=== PATIENT | female | born 1985 | race Caucasian/White ===

== ENCOUNTER 2016-10-13 01:09 | Inpatient (IN) | payer OTHER ==
[2016-10-13] VITALS (11 sets, daily range): BP systolic 94–120; BP diastolic 54–82; PULSE 66–94; RESP 16–20; TEMP 97.9–99.1; O2SAT 93–100
[~2016-10-13] VITALS: Ht 162.6 cm; Wt 59.6 kg
[2016-10-13] MEDS ORDERED: SODIUM CHLORID 0.9% 500 ML INJ 500 ML IV ONE (04:00)
[2016-10-13] MEDS ORDERED: CLINDAMYCIN INJ 600 MG in SODIUM CHLORIDE 0.9% INJ 100 ML IV ONE (04:00)
[2016-10-13 04:17] LABS: BASOPHIL % 0.4 % (0.0-2.0); EOSINOPHIL # 0.1 TH/MM3 (0-0.4); EOSINOPHIL % 2.1 % (0.0-4.0); HEMATOCRIT 35.1 % (35.0-46.0); HEMO FLAGS DIFF FINAL; LYMPHOCYTE # 2.3 TH/MM3 (1.0-4.8); MEAN CELL VOLUME 77.2 FL (80.0-100.0); MEAN CORPUSCULAR HEMOGLOBIN 25.7 PG (27.0-34.0); MEAN CORPUSCULAR HGB CONC 33.3 % (32.0-36.0); MONO % 9.8 % (0.0-8.0); NEUT % 49.7 % (16.0-70.0); PLATELET COUNT 331 TH/MM3 (150-450); RED BLOOD COUNT 4.54 MIL/MM3 (4.00-5.30); RED CELL DISTRIBUTION WIDTH 15.4 % (11.6-17.2); WHITE BLOOD COUNT 6.1 TH/MM3 (4.0-11.0)
[2016-10-13 04:40] LABS: ALT (GPT) 53 U/L (10-53); ANION GAP 7 MEQ/L (5-15); AST (GOT) 49 U/L (15-37); BICARBONATE 31.4 MEQ/L (21.0-32.0); BLOOD UREA NITROGEN 13 MG/DL (7-18); CHLORIDE 102 MEQ/L (98-107); GLOMERULAR FILTRATION RATE 72 ML/MIN (>89); POTASSIUM 3.9 MEQ/L (3.5-5.1); SODIUM (NA) 140 MEQ/L (136-145)
[2016-10-13 04:42] LABS: ALKALINE PHOSPHATASE 91 U/L (45-117); TOTAL BILIRUBIN ADULT 0.4 MG/DL (0.2-1.0)
[2016-10-13] MEDS ORDERED: VANCOMYCIN INJ 1,000 MG in SODIUM CHLOR 0.9% 250 ML INJ 250 ML IV ONE (04:45)
[2016-10-13] MEDS ORDERED: PIPERACIL-TAZO 3.375 GM PREMIX 50 ML IV ONE (04:45)
--- NOTE | 2016-10-13 05:20 | PD ---
HPI Chief Complaint: Skin Problem Time Seen by Provider: 03:50 Travel History International Travel<30 days: No Contact w/Intl Traveler<30days: No Traveled to known affect area: No History of Present Illness HPI The patient is a 31 year old female who presents to the [facility] emergency department with a history of being brought in by the [facility] for medical clearance related to being an ex parte brought into their facility this evening. The patient has a history of long-standing hydromorphone IV drug use. She reports that she's been using for the last 3 years. The patient reports that she has intermittent abscesses from skin infections from IV drug use. She was last admitted to the hospital 6 months ago in [place] related to an infected wound. She reports that she saw a wound care management doctor at that time in the hospital, however she has not followed up with a primary care physician or a wound management doctor. The patient reports that for the last 2 months she's had a wound with poor healing along the posterior aspect of the right arm. This is 9 x 6 cm with necrotic tissue noted in the center and yellow discharge. The patient denies having any known fevers. The patient incidentally also reports on review of systems having chronic constipation. She reports that she has not moved her bowels for the last 2 weeks. The patient denies having any known history of HIV, however she has been diagnosed with hepatitis C. She is unsure whether she's had any prior history of heart infections related to her IV drug use. The patient denies any history of fever, cough, congestion, neck pain, chest pain, shortness of breath, abdominal pain, vomiting, diarrhea, urinary symptoms, or neurologic symptoms. [facility] Past Medical History Narrative Medical The patient's past medical history is significant for hepatitis C, IV drug use, history of recurrent skin infections. Tetanus Vaccination: Unknown ?: Not Past Surgical History Narrative Surgical The Patient's past surgical history is significant for 3 prior C-sections Social History Alcohol Use: No Tobacco Use: Yes (one pack per day) Substance Use: Yes (Heroin, Dilaudid, occasional cocaine, Marijuana) Allergies-Medications (Allergen,Severity, Reaction): Coded Allergies: No Known Allergies (Unverified , 03/06/14) Reported Meds & Prescriptions Reported Meds & Active Scripts Active No Active Prescriptions or Reported Medications Review of Systems Except as stated in HPI: all other systems reviewed are Neg General / Constitutional: No: Fever Eyes: No: Visual changes HENT: No: Headaches Cardiovascular: No: Chest Pain or Discomfort Respiratory: No: Shortness of Breath Gastrointestinal: Positive: Constipation, No: Nausea, Vomiting, Diarrhea, Abdominal Pain Genitourinary: No: Dysuria Musculoskeletal: No: Pain Skin: Positive Rash, Positive Lesions Neurologic: No: Weakness, Change in Mentation, Slurred Speech Psychiatric: Positive: Substance Abuse, No: Depression Endocrine: No: Polydipsia Hematologic/Lymphatic: No: Easy Bruising Physical Exam Narrative General: The patient is a well-developed thin appearing female in no acute distress. Head and Neck exam: Head is normocephalic atraumatic. Eyes: EOMI, pupils are equal round and reactive to light. Nose: Midline septum with pink mucous membranes Mouth: The patient has poor dentition throughout her mouth. Moist mucus membranes. Posterior oropharynx is not erythematous. No tonsillar hypertrophy. Uvula midline. Airway patent. Neck: No palpable lymphadenopathy. No nuchal rigidity. No thyromegaly. Cardiovascular: Regular rate and rhythm without murmurs, gallops, or rubs. Lungs: Clear to auscultation bilaterally. No wheezes, rhonchi, or rales. Abdomen: Soft, with palpable stool present throughout her colon, no focal tenderness on palpation. No guarding, rebound, or rigidity. Negative Melrude sign. No tenderness on palpation of McBurney's point. Extremities: No clubbing, cyanosis, or edema. 2+ pulses in all 4 extremities. The patient on examination of the area of interest, the right upper extremity along the posterior aspect just distal to the elbow is noted to have a 9 x 6 cm wound with yellow drainage and areas of necrosis. There is a surrounding rim of erythema. Back: No spinous process tenderness to palpation. No costovertebral angle tenderness to palpation. Neurologic Exam: Grossly nonfocal. Skin Exam: The patient has track otero on her upper extremities. The patient has multiple skin lesions noted and pick otero on bilateral upper extremities. The wound of interest that appears to be grossly infected is discussed under the extremity exam. Data Data Last Documented VS Vital Signs Date Time Temp Pulse Resp B/P Pulse Ox O2 Delivery O2 Flow Rate FiO2 10/13/16 05:08 70 16 106/77 100 Room Air 10/13/16 03:36 98.7 Orders Complete Blood Count With Diff (10/13/16 03:52) Comprehensive Metabolic Panel (10/13/16 03:52) C-Reactive Protein (Crp) (10/13/16 03:52) Urinalysis - C+S If Indicated (10/13/16 03:52) Iv Access Insert/Monitor (10/13/16 03:52) Ecg Monitoring (10/13/16 03:52) Oximetry (10/13/16 03:52) Ed Urine Pregnancytest Poc (10/13/16 03:52) Clindamycin Inj (Cleocin Inj) (10/13/16 04:00) Sodium Chlorid 0.9% 500 Ml Inj (Ns 500 M (10/13/16 04:00) Blood Culture (10/13/16 04:36) Wound Culture And Gram Stain (10/13/16 04:36) Lactic Acid Sepsis Protocol (10/13/16 04:36) Piperacil-Tazo 3.375 Gm Premix (Zosyn 3. (10/13/16 04:45) Vancomycin Inj (Vancomycin Inj) (10/13/16 04:45) Admit To Inpatient (10/13/16 ) Vital Signs (Adult) Q4H (10/13/16 05:25) Activity Oob Ad Zaynab (10/13/16 05:25) E Learning Specialist / Telemetry .CONTINUOUS (10/13/16 05:25) Diet Heart Healthy (10/13/16 Breakfast) Sodium Chlor 0.9% 1000 Ml Inj (Ns 1000 M (10/13/16 05:25) Sodium Chloride 0.9% Flush (Ns Flush) (10/13/16 05:30) Sodium Chloride 0.9% Flush (Ns Flush) (10/13/16 09:00) Basic Metabolic Panel (Bmp) (10/14/16 06:00) Complete Blood Count With Diff (10/14/16 06:00) Case Management Consult (10/13/16 05:25) Naloxone Inj (Narcan Inj) (10/13/16 05:30) Inpatient Certification (10/13/16 ) Consult General Surgery (10/13/16 ) Vancomycin Consult Pharmacy (Vancomycin (10/13/16 05:30) Piperacil-Tazo 4.5 Gm Premix (Zosyn 4.5 (10/13/16 11:00) Chest, Single Ap (10/13/16 05:30) Abdomen, Kub Only (10/13/16 05:30) Admit Order (Ed Use Only) (10/13/16 05:31) Labs Laboratory Tests Test 10/13/16 10/13/16 04:00 04:45 White Blood Count 6.1 TH/MM3 Red Blood Count 4.54 MIL/MM3 Hemoglobin 11.7 GM/DL Hematocrit 35.1 % Mean Corpuscular Volume 77.2 FL Mean Corpuscular Hemoglobin 25.7 PG Mean Corpuscular Hemoglobin 33.3 % Concent Red Cell Distribution Width 15.4 % Platelet Count 331 TH/MM3 Mean Platelet Volume 7.8 FL Neutrophils (%) (Auto) 49.7 % Lymphocytes (%) (Auto) 38.0 % Monocytes (%) (Auto) 9.8 % Eosinophils (%) (Auto) 2.1 % Basophils (%) (Auto) 0.4 % Neutrophils # (Auto) 3.0 TH/MM3 Lymphocytes # (Auto) 2.3 TH/MM3 Monocytes # (Auto) 0.6 TH/MM3 Eosinophils # (Auto) 0.1 TH/MM3 Basophils # (Auto) 0.0 TH/MM3 CBC Comment DIFF FINAL Differential Comment Sodium Level 140 MEQ/L Potassium Level 3.9 MEQ/L Chloride Level 102 MEQ/L Carbon Dioxide Level 31.4 MEQ/L Anion Gap 7 MEQ/L Blood Urea Nitrogen 13 MG/DL Creatinine 0.92 MG/DL Estimat Glomerular Filtration 72 ML/MIN Rate Random Glucose 84 MG/DL Calcium Level 9.4 MG/DL Total Bilirubin 0.4 MG/DL Aspartate Amino Transf 49 U/L (AST/SGOT) Alanine Aminotransferase 53 U/L (ALT/SGPT) Alkaline Phosphatase 91 U/L C-Reactive Protein 0.95 MG/DL Total Protein 8.5 GM/DL Albumin 3.7 GM/DL Lactic Acid Level 0.7 mmol/L MDM Medical Decision Making Medical Screen Exam Complete: Yes Emergency Medical Condition: Yes Medical Record Reviewed: Yes Interpretation(s) Last Impressions Chest X-Ray 10/13/16 0530 Signed Impressions: Service Date/Time: Thursday, October 13, 2016 05:52 - CONCLUSION: Normal examination. Santiago Solis Jr., MD Abdomen X-Ray 10/13/16 0530 Signed Impressions: Service Date/Time: Thursday, October 13, 2016 05:53 - CONCLUSION: 1. Moderate amount of stool within the ascending colon. Otherwise, normal bowel gas pattern. Santiago Solis Jr., MD Differential Diagnosis Necrotizing fasciitis, versus infected area of ulceration, versus MRSA skin infection, versus sepsis Narrative Course During the course of the patients emergency department visit, the patients history, examination, and differential diagnosis were reviewed with the patient. The patient had IV access obtained and blood work sent for analysis. The patient was placed on a telephone answerer with oximetry and blood pressure monitoring. A chest x-ray, abdominal x-ray was ordered. A wound culture was collected. Lactic acid was sent for analysis. Blood culture 2 was ordered. The patient was initially provided normal saline IV fluids, Zosyn 3.375 g IV, vancomycin 1 g IV, clindamycin 600mg IV. The patients laboratory studies were reviewed and remarkable for white count 6.1, hemoglobin 11.7, platelets 331 with 9.8 monocytes, CMP is remarkable for a GFR 72, AST 49, C-reactive protein 0.95, albumin 3.7, lactic acid 0.7 Radiology studies were reviewed and remarkable for chest x-ray shows no acute abnormality. Abdominal x-ray reveals moderate amount of stool within the ascending colon. The patients results were discussed with the patient, including the plan of care. I explained that further testing and/ or monitoring is indicated based on the patients history, examination, and/ or laboratory findings. Therefore, I recommended admission for additional evaluation. The patient expressed understanding and was agreeable with this plan. The patient was admitted to the hospital in stable condition and [facility] Physician Communication Physician Communication The patient's case was discussed with Dr. Jung who did agree to admit the patient for further evaluation and treatment at this time. Diagnosis Primary Impression: Infected ulcer of skin Qualified Code: L98.492 - Infected ulcer of skin, with fat layer exposed Additional Impression: IV drug user Admitting Information Admitting Physician Requests: Admit Scripts No Active Prescriptions or Reported Meds Argenis Atkins MD October 13, 2016 05:20
[2016-10-13] MEDS: SODIUM CHLOR 0.9% 1000 ML INJ 1,000 ML IV SCH ×2 (05:25→16:07)
[2016-10-13] MEDS ORDERED: NALOXONE HCL 0.4 MG/ML AMP IV PRN (05:30)
[2016-10-13] MEDS ORDERED: SODIUM CHLORIDE 0.9% FLUSH 10 ML FLUSH IV FLUSH PRN (05:30)
[2016-10-13] MEDS ORDERED: Vancomycin Consult Pharmacy 1 EA OTHER SCH (05:30)
--- NOTE | 2016-10-13 06:25 | RADRPT ---
EXAM DATE/TIME: 10/13/2016 05:52 [facility] COMPARISON: CHEST SINGLE AP, March 06, 2014, 19:04. INDICATIONS : Shortness of breath. MEDICAL HISTORY : None. SURGICAL HISTORY : None. ENCOUNTER: Initial ACUITY: 1 day PAIN SCORE: 0/10 LOCATION: Bilateral chest FINDINGS: A single view of the chest demonstrates the lungs to be symmetrically aerated without evidence of mas s, infiltrate or effusion. The cardiomediastinal contours are unremarkable. Osseous structures are intact. CONCLUSION: Normal examination. Santiago Solis Jr., MD on October 13, 2016 at 6:23 Board Certified Radiologist. This report was verified electronically.
--- NOTE | 2016-10-13 06:32 | RADRPT ---
EXAM DATE/TIME: 10/13/2016 05:53 [facility] COMPARISON: No previous studies available for comparison. INDICATIONS : Distention. MEDICAL HISTORY : None. SURGICAL HISTORY : None. ENCOUNTER: Initial ACUITY: 1 day PAIN SCORE: 0/10 LOCATION: Bilateral abdomen FINDINGS: A single supine frontal view the abdomen shows reading motion artifact. A moderate amount of stool is seen within the ascending colon. Gas-filled loops of nondilated large and small bowel observed. No o rganomegaly observed. No abnormal calcifications. Bony structures are unremarkable. CONCLUSION: 1. Moderate amount of stool within the ascending colon. Otherwise, normal bowel gas pattern. Santiago Solis Jr., MD on October 13, 2016 at 6:30 Board Certified Radiologist. This report was verified electronically.
[2016-10-13] MEDS: SODIUM CHLORIDE 0.9% FLUSH 10 ML FLUSH IV FLUSH SCH ×2 (09:00→21:00)
[2016-10-13] MEDS: PIPERACIL-TAZO 4.5 GM PREMIX 100 ML IV SCH ×3 (11:20→23:00)
[2016-10-13] MEDS ORDERED: PROPOFOL 200 MG/20 ML AMP IV ONE (12:00)
--- NOTE | 2016-10-13 16:20 | HHI.HP ---
HPI Service [facility] Hospitalists Primary Care Physician No Primary Care Physician Admission Diagnosis Skin infection, Exparte, h/o iv drug use Diagnoses: Chief Complaint: R arm pain Travel History International Travel<30 Days: No Contact w/Intl Traveler <30 Da: No Traveled to Known Affected Are: No History of Present Illness The patient is a 31 year old female who presents to the [facility] emergency department with a history of IV drug use and hepatitis C, brought to [facility] for medical clearance however was found to have a chronic wound on the right elbow about 9 x 6 cm with necrotic tissue in the center and yellow discharge. Patient denies having fever. He said that this has been going on for the last 2-5 months. She reports that she has been using intravenous narcotics for the last 3 years and that she would have intermittent skin abscesses from IV drug use. She was admitted owing to see for infected wound and was told to have MRSA at some point. Review of Systems ROS Limitations: Other (All other pertinent systems were reviewed and are negative.) Past Family Social History Past Medical History hepatitis C, IV drug use, history of recurrent skin infections. Past Surgical History C section Reported Medications No Active Prescriptions or Reported Medications Allergies: Coded Allergies: No Known Allergies (Unverified , 10/13/16) Family History IV drugs: dilaudid, cocain, heroin 1 ppd x 4-5 years No EtOH use Physical Exam Vital Signs Vital Signs Date Time Temp Pulse Resp B/P Pulse Ox O2 Delivery O2 Flow Rate FiO2 10/13/16 16:01 99.0 67 18 120/82 100 10/13/16 11:35 99.1 71 20 106/68 99 10/13/16 11:25 72 10/13/16 08:56 98.5 70 20 107/64 93 10/13/16 07:36 98.3 68 18 94/54 95 Room Air 10/13/16 05:08 70 16 106/77 100 Room Air 10/13/16 04:28 16 100 Room Air 10/13/16 03:36 98.7 70 16 117/63 100 Room Air 10/13/16 01:11 97.9 66 16 102/67 98 Physical Exam Not in distress, well-nourished, looks stated age PERRL, pink conjunctiva without injection, anicteric Nose without bleeding, airway patent, oropharynx clear Supple neck, no masses or thyromegaly, trachea midline Normal rate and regular rhythm, no murmurs gallops or rubs appreciated. Clear to auscultation and symmetric bilaterally, normal respiratory effort. Normal bowel sounds, soft, non-tender, nondistended, no guarding. Extremities without clubbing, cyanosis, or edema. Multiple track otero both upper extremities. Patient also has multiple skin lesions with pick otero in bilateral upper extremities. There is a 9 x 6 cm elbow wound with necrotic margins, erythematous base with yellow discharge and yellowish center. AAO x3, no cranial nerve deficits, moves all 4 extremities, no focal neurologic deficits Laboratory Laboratory Tests Test 10/13/16 10/13/16 04:00 04:45 White Blood Count 6.1 Red Blood Count 4.54 Hemoglobin 11.7 Hematocrit 35.1 Mean Corpuscular Volume 77.2 Mean Corpuscular Hemoglobin 25.7 Mean Corpuscular Hemoglobin 33.3 Concent Red Cell Distribution Width 15.4 Platelet Count 331 Mean Platelet Volume 7.8 Neutrophils (%) (Auto) 49.7 Lymphocytes (%) (Auto) 38.0 Monocytes (%) (Auto) 9.8 Eosinophils (%) (Auto) 2.1 Basophils (%) (Auto) 0.4 Neutrophils # (Auto) 3.0 Lymphocytes # (Auto) 2.3 Monocytes # (Auto) 0.6 Eosinophils # (Auto) 0.1 Basophils # (Auto) 0.0 CBC Comment DIFF FINAL Differential Comment Sodium Level 140 Potassium Level 3.9 Chloride Level 102 Carbon Dioxide Level 31.4 Anion Gap 7 Blood Urea Nitrogen 13 Creatinine 0.92 Estimat Glomerular Filtration 72 Rate Random Glucose 84 Calcium Level 9.4 Total Bilirubin 0.4 Aspartate Amino Transf 49 (AST/SGOT) Alanine Aminotransferase 53 (ALT/SGPT) Alkaline Phosphatase 91 C-Reactive Protein 0.95 Total Protein 8.5 Albumin 3.7 Lactic Acid Level 0.7 Date/Time Procedure Status Source Growth 10/13/16 04:40 Gram Stain - Final Resulted Wound Arm 10/13/16 04:40 Wound Culture Resulted Wound Arm Pending 10/13/16 04:40 Aerobic Blood Culture Received Blood Peripheral Pending 10/13/16 04:40 Anaerobic Blood Culture Received Blood Peripheral Pending Result Diagram: 10/13/1639910/13/16399 Imaging Last Impressions Chest X-Ray 10/13/16529 Signed Impressions: Service Date/Time: Thursday, October 13, 2016 05:52 - CONCLUSION: Normal examination. Santiago Solis Jr., MD Abdomen X-Ray 10/13/16529 Signed Impressions: Service Date/Time: Thursday, October 13, 2016 05:53 - CONCLUSION: 1. Moderate amount of stool within the ascending colon. Otherwise, normal bowel gas pattern. Santiago Solis Jr., MD Assessment and Plan Assessment and Plan This is a 31-year-old female with history of IV drug use presenting with a right elbow wound Left elbow wound-start vancomycin and Zosyn intravenously, cultures pending, consult hand surgery. Recheck CBC and BMP tomorrow. Follow-up blood culture results, negative to date. Recheck CBC and BMP in a few days. IV drug use-counseled, caution with narcotics, will give Percocet for pain. DVT prophylaxis: Low risk, SCDs. Physician Certification 2 Midnight Certification Type: Admission for Inpatient Services Order for Inpatient Services The services are ordered in accordance with Medicare regulations or non- Medicare payer requirements, as applicable. In the case of services not specified as inpatient-only, they are appropriately provided as inpatient services in accordance with the 2-midnight benchmark. Estimated LOS (days): 2 days is the estimated time the patient will need to remain in the hospital, assuming treatment plan goals are met and no additional complications. Post-Hospital Plan: Home Ruby Bennett MD October 13, 2016 16:20
[2016-10-13] MEDS: VANCOMYCIN INJ 750 MG in SODIUM CHLOR 0.9% 250 ML INJ 250 ML IV SCH (17:08)
[2016-10-13] MEDS: oxyCODONE/ACETAMINOPHEN 5 MG/325 MG TAB PO PRN ×2 (17:09→23:59)
--- NOTE | 2016-10-13 18:21 | RADRPT ---
EXAM DATE/TIME: 10/13/2016 17:58 [facility] COMPARISON: No previous studies available for comparison. INDICATIONS : Right elbow scab, redness, and swelling. MEDICAL HISTORY : None. SURGICAL HISTORY : None. ENCOUNTER: Initial ACUITY: 2 weeks PAIN SCORE: 10/10 LOCATION: Right posterior elbow. FINDINGS: There is soft tissue disruption involving the dorsal aspect of the proximal forearm. No definite evid ence of underlying bony abnormality. Specifically, no evidence of periosteal reaction or cortical lien truction. Mineralization alignment are normal. There is no evidence of fracture or arthropathy CONCLUSION: No acute bony findings Kash Franco MD on October 13, 2016 at 18:18 Board Certified Radiologist. This report was verified electronically.
[2016-10-14 03:50] VITALS: BP 112/68; PULSE 70; RESP 18; TEMP 99; O2SAT 97
[2016-10-14] MEDS: VANCOMYCIN INJ 750 MG in SODIUM CHLOR 0.9% 250 ML INJ 250 ML IV SCH ×2 (04:11→15:50)
[2016-10-14] MEDS: PIPERACIL-TAZO 4.5 GM PREMIX 100 ML IV SCH ×4 (05:00→23:01)
[2016-10-14] MEDS: oxyCODONE/ACETAMINOPHEN 5 MG/325 MG TAB PO PRN ×2 (05:07→11:00)
[2016-10-14 07:25] VITALS: BP 117/76; PULSE 66; RESP 18; TEMP 98.8; O2SAT 100
--- NOTE | 2016-10-14 08:31 | HHI.PR ---
Subjective Remarks Follow up right elbow wound. Patient seen and examined laying in bed. She states she is in pain, 7/10, throbbing and aching that radiates up her right arm , with associated chills and fever and chills. No documented fever noted. Awaiting hand surgery to evaluate for surgery. Denies any chest pain, sob, nausea or vomiting. She would like increased pain control. Nursing at the bedside. Objective Vitals Vital Signs Date Time Temp Pulse Resp B/P Pulse Ox O2 Delivery O2 Flow Rate FiO2 10/14/16 07:25 98.8 66 18 117/76 100 10/14/16 05:55 18 10/14/16 03:50 99.0 70 18 112/68 97 10/13/16 23:18 98.1 72 18 115/70 96 10/13/16 19:43 99.1 94 18 113/74 99 10/13/16 16:01 99.0 67 18 120/82 100 10/13/16 11:35 99.1 71 20 106/68 99 10/13/16 11:25 72 10/13/16 08:56 98.5 70 20 107/64 93 I/O 10/13/16 10/13/16 10/13/16 10/14/16 10/14/16 10/14/16 07:00 15:00 23:00 07:00 15:00 23:00 Intake Total 200 ml 850 ml Balance 200 ml 850 ml Intake Oral 200 ml 400 ml IV Total 450 ml Result Diagram: 10/13/16 0400 10/13/16 0400 Imaging Last Impressions Chest X-Ray 10/13/16529 Signed Impressions: Service Date/Time: Thursday, October 13, 2016 05:52 - CONCLUSION: Normal examination. Santiago Solis Jr., MD Abdomen X-Ray 10/13/16529 Signed Impressions: Service Date/Time: Thursday, October 13, 2016 05:53 - CONCLUSION: 1. Moderate amount of stool within the ascending colon. Otherwise, normal bowel gas pattern. Santiago Solis Jr., MD Elbow X-Ray 10/13/16 0000 Signed Impressions: Service Date/Time: Thursday, October 13, 2016 17:58 - CONCLUSION: No acute bony findings Kash Franco MD Objective Remarks GENERAL: SKIN: Warm and dry. Multiple track otero both upper extremities. Patient also has multiple skin lesions with pick otero in bilateral upper extremities. There is a 9 x 6 cm elbow wound with necrotic margins, erythematous base with yellow discharge and yellowish center. HEAD: Atraumatic. Normocephalic. EYES: Pupils equal and round. No scleral icterus. No injection or drainage. ENT: No nasal bleeding or discharge. Mucous membranes pink and moist. NECK: Trachea midline. No JVD. CARDIOVASCULAR: Regular rate and rhythm. RESPIRATORY: No accessory muscle use. Clear to auscultation. Breath sounds equal bilaterally. GASTROINTESTINAL: Abdomen soft, non-tender, nondistended. MUSCULOSKELETAL: Extremities without clubbing, cyanosis, or edema. No obvious deformities. NEUROLOGICAL: Awake and alert. Motor grossly within normal limits. Normal speech. PSYCHIATRIC: Appropriate mood and affect; insight and judgment normal. Medications and IVs Current Medications Medications (Trade) Dose Ordered Sig/Reema Route Start Time Stop Time Status Last Admin (NS Flush) 2 ml UNSCH PRN IV FLUSH 10/13/16 05:30 (NS Flush) 2 ml BID IV FLUSH 10/13/16 09:00 10/13/16 21:00 Naloxone HCl 0.4 mg 0.4 mg UNSCH PRN IV 10/13/16 05:30 Pharmacy Profile Note 0 ml @ 0 mls/hr UNSCH OTHER 10/13/16 05:30 Piperacillin Sod/ Tazobactam Sod 100 ml @ 200 mls/hr Q6H IV 10/13/16 11:00 10/14/16 05:00 (Vancomycin Inj/ NS 250 ml Inj) 257.5 ml @ 250 mls/hr Q12H IV 10/13/16 15:00 10/14/16 04:11 Miscellaneous Information SPECIFIC LAB TO BE DRAWN:VANCOMYCIN TROUGH DATE TO... ONCE ONCE .XX 10/15/16 02:45 10/15/16 02:46 (Percocet 5-325 Mg) 1 tab Q6H PRN PO 10/13/16 16:45 10/14/16 05:07 A/P Problem List: (1) Infected ulcer of skin ICD Code: L98.499 Status: Acute (2) IV drug user ICD Code: F19.90 Status: Chronic Assessment and Plan This is a 31-year-old female with history of IV drug use and Hep C presenting with a right elbow wound. Left elbow wound Images: Right elbow xray unremarkable -Cont vancomycin and Zosyn IV -cultures pending -consult hand surgery, Dr Quinn possible surgery today -Follow-up blood culture results, negative to date. -Recheck CBC and BMP in a few days. Await hand surgery consult. Continue antibiotics. IV drug use -counseled -caution with narcotics -Percocet PO for pain. DVT prophylaxis: Low risk, SCDs. Discharge Planning pending surgery Attending Statement The exam, history, and the medical decision-making described in the above note were completed with the assistance of the mid-level provider. I reviewed and agree with the findings presented. I attest that I had a [id number] encounter with the patient on the same day, and personally performed and documented my assessment and findings in the medical record. Problem Qualifiers (1) Infected ulcer of skin: Qualified Code: L98.492 - Infected ulcer of skin, with fat layer exposed Liliana Mariee October 14, 2016 08:31 Corey Acharya DO October 14, 2016 17:48
[2016-10-14] MEDS: SODIUM CHLORIDE 0.9% FLUSH 10 ML FLUSH IV FLUSH SCH ×2 (09:00→21:00)
[2016-10-14] MEDS: SODIUM CHLOR 0.9% 1000 ML INJ 1,000 ML IV SCH ×2 (10:07→18:08)
[2016-10-14 10:50] LABS: AUTOMATED NEUTROPHIL # 3.8 TH/MM3 (1.8-7.7); BASOPHIL % 0.3 % (0.0-2.0); EOSINOPHIL % 0.5 % (0.0-4.0); HEMATOCRIT 32.5 % (35.0-46.0); LYMPH % 21.3 % (9.0-44.0); LYMPHOCYTE # 1.1 TH/MM3 (1.0-4.8); MEAN CELL VOLUME 77.1 FL (80.0-100.0); MEAN CORPUSCULAR HEMOGLOBIN 24.2 PG (27.0-34.0); MEAN CORPUSCULAR HGB CONC 31.3 % (32.0-36.0); MONO % 4.1 % (0.0-8.0); NEUT % 73.8 % (16.0-70.0); PLATELET COUNT 283 TH/MM3 (150-450); RED BLOOD COUNT 4.21 MIL/MM3 (4.00-5.30); RED CELL DISTRIBUTION WIDTH 14.9 % (11.6-17.2); WHITE BLOOD COUNT 5.1 TH/MM3 (4.0-11.0)
[2016-10-14 10:58] LABS: HEMO FLAGS AUTO DIFF
[2016-10-14 11:18] LABS: BICARBONATE 27.2 MEQ/L (21.0-32.0); POTASSIUM 3.6 MEQ/L (3.5-5.1)
[2016-10-14 11:48] VITALS: BP 107/62; PULSE 66; RESP 18; TEMP 98.8; O2SAT 99
[2016-10-14 12:03] LABS: OVALOCYTES 1+ (NORMAL); SCAN/DIFF AUTO DIFF CONFIRMED
[2016-10-14] MEDS ORDERED: oxyCODONE/ACETAMINOPHEN 5 MG/325 MG TAB PO PRN (14:45)
[2016-10-14] MEDS: oxyCODONE/ACETAMINOPHEN 10 MG/325 MG TAB PO PRN ×2 (14:57→23:03)
[2016-10-14 16:26] VITALS: BP 128/88; PULSE 61; RESP 17; TEMP 98.7; O2SAT 100
[2016-10-14] MEDS ORDERED: GENTAMICIN SULFATE 80 MG/2 ML VIAL ONE (19:55)
[2016-10-14] MEDS ORDERED: LIDOCAINE HCL 2% 50 ML VIAL ONE (19:55)
[2016-10-14 20:15] VITALS: BP 129/84; PULSE 63; RESP 16; TEMP 98; O2SAT 100
[2016-10-14] MEDS ORDERED: *morphine SULFATE 8 MG/ML PERIprocedure ONLY ONE (21:39)
--- NOTE | 2016-10-14 22:37 | PD.ORT.PN ---
Subjective Subjective Remarks Patient reports pain right forearm. Denies paresthesias. Objective Vitals Vital Signs Date Time Temp Pulse Resp B/P Pulse Ox O2 Delivery O2 Flow Rate FiO2 10/14/16 22:04 55 22 107/72 99 Room Air 10/14/16 21:45 59 22 109/71 98 Room Air 10/14/16 21:36 98.0 57 22 112/70 100 Nasal Cannula 2 10/14/16 20:15 98.0 63 16 129/84 100 10/14/16 16:26 98.7 61 17 128/88 100 10/14/16 12:00 18 10/14/16 11:48 98.8 66 18 107/62 99 10/14/16 07:25 98.8 66 18 117/76 100 10/14/16 03:50 99.0 70 18 112/68 97 10/13/16 23:18 98.1 72 18 115/70 96 I/O 10/13/16 10/13/16 10/13/16 10/14/16 10/14/16 10/14/16 06:59 14:59 22:59 06:59 14:59 22:59 Intake Total 200 ml 850 ml 530 ml Balance 200 ml 850 ml 530 ml Intake Oral 200 ml 400 ml IV Total 450 ml 30 ml Other 500 ml Result Diagram: 10/14/16 1000 10/14/16 1000 Objective Remarks VAC in place with good suction, dressing in place, sitlt m/u/r, 2+ radial pulse , good ROM fingers Assessment & Plan Assessment and Plan 31yF with 3 month old chronic would posterior aspect right forearm +MRSA in patient admitted to Rehab facility. POD0 s/p I&D right forearm, VAC placement -VAC 125mmHg -Ab per primary team -no further indication for hand surgery, will consult wound care for VAC changes and possible skin graft and other wound care -d/c to rehab facility if able to care for VAC Liliana Quinn MD October 14, 2016 22:37
--- NOTE | 2016-10-14 22:54 | MB ---
cc: YENY BLACKWELL MD DATE OF CONSULTATION 10/14/16 REASON FOR CONSULTATION Chronic open wound right posterior forearm. HISTORY OF PRESENT ILLNESS Faye Dooley is a 31-year-old right-hand dominant female who admits to longstanding IV drug use. She states that she injects IV Dilaudid into the right upper extremity and has had multiple open wounds for some time. She states she has had an open wound on the posterior aspect of the right forearm for approximately three months. She states that she continues to inject into this area and the last was approximately five days ago. She states that she does attempt to keep the area clean. She denies any paresthesias. She reports mild pain. She was brought to [facility] by her family and transferred to the hospital for medical clearance due to the wound. The patient also has a history of hepatitis C. PAST MEDICAL HISTORY Hepatitis C, history of IV drug use. PAST SURGICAL HISTORY SOCIAL HISTORY Smokes one pack per day. Denies alcohol use. States that she injects heroin and Dilaudid, cocaine and marijuana. ALLERGIES NO KNOWN DRUG ALLERGIES. PHYSICAL EXAMINATION The patient is located in the hospital bed in no acute distress. She is alert and oriented times three with a sitter at the bedside. Dressing removed from the right upper extremity. The patient has approximately a 9 x 6 cm wound over the posterior aspect of the right forearm with no exposed bone but significant purulent drainage. The patient does have good range of motion of the elbow including flexion, extension, supination, pronation. Sensation intact in the median, ulnar and radial distribution. Good range of motion of the wrist and fingers. Compartment soft and compressible. 2+ radial pulse. IMAGING STUDIES X-ray of the right elbow shows soft tissue disruption, no evidence of periosteal reaction or cortical destruction. LABORATORY DATA White count 5.1, glucose 123, CRP 0.95. ASSESSMENT/PLAN A 31-year-old right-hand dominant female with a three-month chronic wound on the posterior aspect of the right forearm. Treatment options were discussed with the patient. At this time, due to the significant purulence and unclear depth of the wound, I recommend taking the patient to the operating room for irrigation debridement, possible VAC and she elected to proceed. She understands from her prior wound, this may take a very long time to heal. She will likely require wound care management. She may require skin graft or other surgical procedures which may be performed by a different physician. She elected to proceed. Risks were explained but are not limited to , sepsis, stiffness, pain, wound complications, infection, need for many surgeries and she elected to proceed. MD IVY Pradhan/ /10:31 PM /10:39 PM MTDD
[2016-10-15] VITALS (8 sets, daily range): BP systolic 97–114; BP diastolic 57–79; PULSE 55–64; RESP 17–20; TEMP 96.8–98.5; O2SAT 97–100
[2016-10-15] MEDS ORDERED: PHARMACY ORDERED LAB ONE (02:45)
[2016-10-15] MEDS: oxyCODONE/ACETAMINOPHEN 10 MG/325 MG TAB PO PRN ×6 (03:22→22:28)
[2016-10-15] MEDS: SODIUM CHLOR 0.9% 1000 ML INJ 1,000 ML IV SCH ×2 (04:45→13:53)
[2016-10-15] MEDS: PIPERACIL-TAZO 4.5 GM PREMIX 100 ML IV SCH ×3 (05:06→11:00)
[2016-10-15 06:49] LABS: VANCOMYCIN TROUGH 5.6 MCG/ML (5.0-10.0)
[2016-10-15] MEDS: SODIUM CHLORIDE 0.9% FLUSH 10 ML FLUSH IV FLUSH SCH ×2 (07:41→20:45)
[2016-10-15] MEDS ORDERED: VANCOMYCIN INJ 750 MG in SODIUM CHLOR 0.9% 250 ML INJ 250 ML IV SCH (10:00)
[2016-10-15] MEDS: DOCUSATE SODIUM 100 MG CAP PO SCH ×2 (12:42→20:44)
[2016-10-15] MEDS ORDERED: SOD PHOSPHATE/SOD BIPHOSPHATE (ADULT) ENEMA 133ML RECTAL ONE (13:00)
[2016-10-15] MEDS: NICOTINE 21 MG/24 HR PATCH T-DERMAL SCH (15:29)
--- NOTE | 2016-10-15 17:41 | HHI.PR ---
Subjective Remarks Follow-up for infection of the arm Patient has no complaints. Her mom is at the bedside. Patient has not had a bowel movements for weeks. Per patient she has bowel movements about once every week due to being addicted to opioids and being dehydrated. Otherwise she has no complaints. She remains afebrile. Patient also stated that she wanted something for insomnia. Patient nurses at the bedside. Objective Vitals Vital Signs Date Time Temp Pulse Resp B/P Pulse Ox O2 Delivery O2 Flow Rate FiO2 10/15/16 15:50 97.1 55 17 113/73 100 10/15/16 11:45 98.4 64 17 114/70 100 10/15/16 11:04 97 21 10/15/16 07:35 97.4 57 17 110/79 98 10/15/16 05:41 96.8 62 18 97/57 99 10/15/16 00:19 98.5 56 20 97/58 99 10/14/16 22:04 55 22 107/72 99 Room Air 10/14/16 21:45 59 22 109/71 98 Room Air 10/14/16 21:36 98.0 57 22 112/70 100 Nasal Cannula 2 10/14/16 20:15 98.0 63 16 129/84 100 I/O 10/14/16 10/14/16 10/14/16 10/15/16 10/15/16 10/15/16 07:00 15:00 23:00 07:00 15:00 23:00 Intake Total 850 ml 530 ml 480 ml Balance 850 ml 530 ml 480 ml Intake Oral 400 ml 480 ml IV Total 450 ml 30 ml Other 500 ml # Voids 1 0 0 1 # Bowel Movements 0 0 Result Diagram: 10/14/16 1000 10/15/16 0430 Objective Remarks GENERAL: in NAD SKIN: Bandage and wound VAC in place. Unable to examine at the moment. see assessment and plan. CARDIOVASCULAR: Regular rate and rhythm without murmurs, gallops, or rubs. RESPIRATORY: Breath sounds equal bilaterally. No accessory muscle use. GASTROINTESTINAL: Abdomen soft, non-tender, nondistended. MUSCULOSKELETAL: No cyanosis, or edema. BACK: Nontender without obvious deformity. No CVA tenderness. Medications and IVs Current Medications Clindamycin Phosphate 600 mg/ Sodium Chloride 104 ml @ 208 mls/hr ONCE ONCE IV Last administered on 10/13/16 04:00; Start 10/13/16 at 04:00; Stop at 04:29; Status DC Sodium Chloride 500 ml @ 500 mls/hr BOLUS ONCE IV Last administered on 04:00; Start 10/13/16 at 04:00; Stop 10/13/16 at 04:59; Status DC Piperacillin Sod/ Tazobactam Sod 50 ml @ 100 mls/hr ONCE ONCE IV Last administered on 10/13/16 04:45; Start 10/13/16 at 04:45; Stop 10/13/16 at 05:14 ; Status DC Vancomycin HCl 1000 mg/Sodium Chloride 250 ml @ 250 mls/hr ONCE ONCE IV Last administered on 10/13/16 04:45; Start 10/13/16 at 04:45; Stop 10/13/16 at 05:44 ; Status DC Sodium Chloride (NS 1000 ml Inj) 1,000 ml @ 100 mls/hr Q10H IV Last administered on 10/13/16 16:07; Start 10/13/16 at 05:25; Stop 10/13/16 at 17:36 ; Status DC Sodium Chloride (NS Flush) 2 ml UNSCH PRN IV FLUSH FLUSH AFTER USING IV ACCESS ; Start 10/13/16 at 05:30 Sodium Chloride (NS Flush) 2 ml BID IV FLUSH Last administered on 10/13/16 21: 00; Start 10/13/16 at 09:00 Naloxone HCl 0.4 mg 0.4 mg UNSCH PRN IV SEE LABEL COMMENTS; Start 10/13/16 at 05:30 Pharmacy Profile Note 0 ml @ 0 mls/hr UNSCH OTHER ; Start 10/13/16 at 05:30; Stop 10/15/16 at 15:15; Status DC Piperacillin Sod/ Tazobactam Sod 100 ml @ 200 mls/hr Q6H IV Last administered on 10/15/16 05:06; Start 10/13/16 at 11:00; Stop 10/15/16 at 12:07; Status DC Vancomycin HCl/ Sodium Chloride (Vancomycin Inj/ NS 250 ml Inj) 257.5 ml @ 250 mls/hr Q12H IV Last administered on 10/14/16 15:50; Start 10/13/16 at 15:00; Stop 10/15/16 at 09:24; Status DC Miscellaneous Information SPECIFIC LAB TO BE DRAWN:VANCOMYCIN TROUGH DATE TO... ONCE ONCE .XX ; Start 10/15/16 at 02:45; Stop 10/15/16 at 02:46; Status DC Oxycodone/ Acetaminophen 1 tab 1 tab Q6H PRN PO pain 3 -10 Last administered on 10/14/16 11:00; Start 10/13/16 at 16:45; Stop 10/14/16 at 14:41; Status DC Sodium Chloride (NS 1000 ml Inj) 1,000 ml @ 100 mls/hr Q10H IV Last administered on 10/15/16 04:45; Start 10/14/16 at 08:45 Oxycodone/ Acetaminophen (Percocet 5-325 Mg) 1 tab Q4H PRN PO pain 3-5; Start 10/14/16 at 14:45 Oxycodone/ Acetaminophen (Percocet 10-325 Mg) 1 tab Q4H PRN PO pain 6-10 Last administered on 10/15/16 14:48; Start 10/14/16 at 14:45 Lidocaine HCl (Xylocaine 2% Inj) 50 ml STK-MED ONCE .ROUTE ; Start 10/14/16 at 19:55; Stop 10/14/16 at 19:56; Status DC Gentamicin Sulfate (Gentamicin Inj) 240 mg STK-MED ONCE .ROUTE Last administered on 10/14/16 20:59; Start 10/14/16 at 19:55; Stop 10/14/16 at 19:56 ; Status DC Morphine Sulfate (*morphine INJ PERIprocedure ONLY) 8 mg STK-MED ONCE .ROUTE Last administered on 10/14/16 21:39; Start 10/14/16 at 21:39; Stop 10/14/16 at 21:40; Status DC Fentanyl Citrate 100 mcg 100 mcg STK-MED ONCE .ROUTE ; Start 10/14/16 at 21:40; Stop 10/14/16 at 21:41; Status DC Vancomycin HCl/ Sodium Chloride (Vancomycin Inj/ NS 250 ml Inj) 257.5 ml @ 250 mls/hr Q8H IV Last administered on 10/15/16 09:57; Start 10/15/16 at 10:00; Stop 10/15/16 at 15:15; Status DC Miscellaneous Information SPECIFIC LAB TO BE DRAWN:VANCO TROUGH DATE TO... ONCE ONCE .XX ; Start 10/16/16 at 09:45; Stop 10/16/16 at 09:45; Status DC Sodium Biphosphate/ Sodium Phosphate (Fleets Enema (Adult)) 133 ml ONCE ONCE RECTAL ; Start 10/15/16 at 13:00; Stop 10/15/16 at 13:01; Status DC Docusate Sodium (Colace) 100 mg BID PO Last administered on 10/15/16t 12:42; Start 10/15/16 at 13:00 Nicotine (Habitrol 21 Mg Patch.24 Hr) 1 patch DAILY T-DERMAL Last administered on 10/15/16t 15:29; Start 10/15/16 at 15:15 Miscellaneous Information 1 HS T-DERMAL ; Start 10/15/16 at 21:00 Trimethoprim/ Sulfamethoxazole (Bactrim Ds 800-160 Mg) 1 tab Q12HR PO ; Start at 21:00 Melatonin (Melatonin) 5 mg HS PRN PO insomnia; Start 10/15/16 at 17:30 A/P Problem List: (1) Infected ulcer of skin ICD Code: L98.499 Status: Acute (2) IV drug user ICD Code: F19.90 Status: Chronic Assessment and Plan 31yF with 3 month old chronic would posterior aspect right forearm +MRSA Chronic posterior aspect right forearm wound -s/p POD 1 s/p I&D right forearm, VAC placement -VAC 125mmHg -Cultures positive for MRSA. -Unable to examine patient's wound due to recent surgery and per Dr. quinn recommend to keep wound vac and bandages for 3 days from surgery. -Per Dr. Quinn abscess was very superficial and there was no extension into deep tissue. She stated that patient did not have any cellulitis. -We will discontinue vancomycin and Zosyn. Start patient on Bactrim since it is sensitive to Bactrim. Will determine length of treatment when patient has her wound VAC change on 10/17/16. -Patient is exparte and per case management does not qualify for any SNF placement at the moment. -Per hand surgeon no further indication for hand surgery, will consult wound care for VAC changes and possible skin graft and other wound care IV drug use -counseled -caution with narcotics -Percocet PO for pain. Insomnia -Avoid any addicting medication due to history of drug abuse. Will try melatonin. Severe constipation -KUB shows stools but normal gas pattern. No signs of obstruction. -Secondary to opioids abuse and dehydration. -Encourage fluid intake. Will put patient on a stool softener and give her enema. DVT prophylaxis: Low risk, SCDs. Dealt with patient's nurse and her mother at the bedside. Discharge Planning At the moment per case management she does not qualify for any SNF placement. She will need continued hospitalization secondary to the wound VAC. Problem Qualifiers (1) Infected ulcer of skin: Qualified Code: L98.492 - Infected ulcer of skin, with fat layer exposed Raven Bonilla MD October 15, 2016 17:40
[2016-10-15] MEDS: SULFAMETHOXAZOLE-TRIMETHOPRIM DS 800-160 MG TAB PO SCH (20:44)
[2016-10-15] MEDS: MELATONIN 5 MG TAB PO PRN (20:44)
[2016-10-15] MEDS: REMOVE OLD PATCH T-DERMAL SCH (22:28)
[2016-10-16] VITALS: BP 111/69; PULSE 52; RESP 18; TEMP 97.9; O2SAT 99
[2016-10-16] MEDS: oxyCODONE/ACETAMINOPHEN 10 MG/325 MG TAB PO PRN ×6 (02:39→21:31)
[2016-10-16 04:00] VITALS: BP 112/70; PULSE 58; RESP 13; TEMP 97.8; O2SAT 99
[2016-10-16 08:22] VITALS: BP 119/74; PULSE 55; RESP 18; TEMP 97.6; O2SAT 100
[2016-10-16] MEDS: NICOTINE 21 MG/24 HR PATCH T-DERMAL SCH (09:06)
[2016-10-16] MEDS: SULFAMETHOXAZOLE-TRIMETHOPRIM DS 800-160 MG TAB PO SCH ×2 (09:07→21:00)
[2016-10-16] MEDS: REMOVE OLD PATCH T-DERMAL SCH (09:07)
[2016-10-16] MEDS: DOCUSATE SODIUM 100 MG CAP PO SCH ×2 (09:07→21:00)
[2016-10-16] MEDS: SODIUM CHLORIDE 0.9% FLUSH 10 ML FLUSH IV FLUSH SCH ×2 (09:07→21:00)
[2016-10-16] MEDS ORDERED: PHARMACY ORDERED LAB ONE (09:45)
--- NOTE | 2016-10-16 09:59 | MP ---
cc: LILIANA QUINN DATE OF SURGERY: 10/14/2016 PREOPERATIVE DIAGNOSIS: 1. Chronic open wound, posterior aspect of right forearm measuring 9 x 6 cm. PROCEDURE: 1. Irrigation debridement skin, subcutaneous tissue, muscle, right forearm. 2. Placement of a vac dressing, right forearm measuring 9 x 6 x 0.50 cm. SURGEON: Dr. Liliana Quinn ANESTHESIA General. TOURNIQUET None INDICATIONS FOR PROCEDURE Faye Dooley is a 31-year-old female with 3-month chronic wound with purulent drainage with culture positive for MRSA, from the posterior aspect of the right forearm. I recommended irrigation debridement, possible VAC surgery as indicated, the patient wants to proceed, the risks, were explained, not limited to sepsis, staph infection, need for many procedures, need for skin grafts, need for prolonged care of the upper extremity pain, paresthesias, stiffness and she elected to proceed. DESCRIPTION OF PROCEDURE The patient was identified in the preoperative holding area and the correct extremity was marked. right upper extremity prepped and draped in normal sterile fashion. The area was copiously irrigated with antibiotic saline. There was some on healthy granulation tissue over the purulence, which was sent for culture. There was no obvious exposed bone or tendon. The wound was on the posterior lateral aspect of the right posterior forearm with no apparent involvement of the elbow joint itself. After debridement of skin, subcutaneous tissue and muscle a wound vac was placed measuring 9 x 7 x 1/2 cm. This had good suction. The patient was placed into a soft dressing and awoken from anesthesia without any complications. I will consult wound management physician for further care and discuss with [facility] whether she may return for her rehabilitation program. MD IVY Pradhan/dylan /10:35 PM /9:53 AM [facility]
[2016-10-16] MEDS: SODIUM CHLOR 0.9% 1000 ML INJ 1,000 ML IV SCH (11:30)
[2016-10-16 12:00] VITALS: BP 113/69; PULSE 62; RESP 18; TEMP 97.1; O2SAT 100
[2016-10-16] MEDS ORDERED: MAGNESIUM HYDROXIDE SUSP 30 ML CUP PO PRN (12:15)
[2016-10-16] MEDS: MORPHINE SULFATE 4 MG/ML INJ IV PUSH PRN (12:53)
[2016-10-16] MEDS: POLYETHYLENE GLYCOL 17 GM PKG PO SCH (12:53)
--- NOTE | 2016-10-16 14:57 | HHI.PR ---
Subjective Remarks Pt seen earlier today. Had wound vac changed today and currently has a lot of pain. denies any chest pain, SOB, nausea or vomiting Objective Vitals Vital Signs Date Time Temp Pulse Resp B/P Pulse Ox O2 Delivery O2 Flow Rate FiO2 10/16/16 12:58 16 10/16/16 11:09 17 10/16/16 08:22 97.6 55 18 119/74 100 10/16/16 04:00 97.8 58 13 112/70 99 10/16/16 00:00 97.9 52 18 111/69 99 10/15/16 20:00 98.4 55 18 110/69 100 10/15/16 17:58 99 21 10/15/16 15:50 97.1 55 17 113/73 100 I/O 10/15/16 10/15/16 10/15/16 10/16/16 10/16/16 10/16/16 07:00 15:00 23:00 07:00 15:00 23:00 Intake Total 480 ml Balance 480 ml Intake Oral 480 ml # Voids 0 0 1 # Bowel Movements 0 0 Result Diagram: 10/14/16 1000 10/15/16 0430 Imaging Last Impressions Chest X-Ray 10/13/16 0530 Signed Impressions: Service Date/Time: Thursday, October 13, 2016 05:52 - CONCLUSION: Normal examination. Santiago Solis Jr., MD Abdomen X-Ray 10/13/16 0530 Signed Impressions: Service Date/Time: Thursday, October 13, 2016 05:53 - CONCLUSION: 1. Moderate amount of stool within the ascending colon. Otherwise, normal bowel gas pattern. Santiago Solis Jr., MD Elbow X-Ray 10/13/16 0000 Signed Impressions: Service Date/Time: Thursday, October 13, 2016 17:58 - CONCLUSION: No acute bony findings Kash Franco MD Objective Remarks GENERAL: in NAD SKIN: Bandage and wound VAC in place. CARDIOVASCULAR: Regular rate and rhythm without murmurs, gallops, or rubs. RESPIRATORY: Breath sounds equal bilaterally. No accessory muscle use. GASTROINTESTINAL: Abdomen soft, non-tender, nondistended. MUSCULOSKELETAL: No cyanosis, or edema. A/P Problem List: (1) Infected ulcer of skin ICD Code: L98.499 Status: Acute (2) IV drug user ICD Code: F19.90 Status: Chronic Assessment and Plan 31yF with 3 month old chronic would posterior aspect right forearm +MRSA Chronic posterior aspect right forearm wound -s/p POD 2 s/p I&D right forearm, VAC placement -VAC 125mmHg -Cultures positive for MRSA. -Unable to examine patient's wound due to recent surgery and per Dr. quinn recommend to keep wound vac and bandages for 3 days from surgery. Wound care unable to make wound vac change tomorrow and was able to change this today instead. Recommends changing wound vac M,W,F. -Per Dr. Quinn abscess was very superficial and there was no extension into deep tissue. No cellulitis. -off vancomycin and Zosyn. Patient on Bactrim since it is sensitive to Bactrim. -Patient is exparte and per case management does not qualify for any SNF placement at the moment. -Per hand surgeon no further indication for hand surgery, wound care following for VAC changes and possible skin graft and other wound care IV drug use -counseled -caution with narcotics -Percocet PO for pain. Insomnia -Avoid any addicting medication due to history of drug abuse. on melatonin. Severe constipation -KUB shows stools but normal gas pattern. No signs of obstruction. -Secondary to opioids abuse and dehydration. -Encourage fluid intake. added meds for bowel regimen DVT prophylaxis: Low risk, SCDs. Discharge Planning At the moment per case management she does not qualify for any SNF placement. She will need continued hospitalization secondary to the wound VAC. Problem Qualifiers (1) Infected ulcer of skin: Qualified Code: L98.492 - Infected ulcer of skin, with fat layer exposed Talia Chavira MD October 16, 2016 14:57 Qualified Code: L98.492 - Infected ulcer of skin, with fat layer exposed Talia Chavira MD October 16, 2016 14:57
[2016-10-16 16:16] LABS: HEMATOCRIT 31.2 % (35.0-46.0); MEAN CELL VOLUME 77.7 FL (80.0-100.0); MEAN CORPUSCULAR HEMOGLOBIN 24.8 PG (27.0-34.0); MEAN CORPUSCULAR HGB CONC 31.9 % (32.0-36.0); PLATELET COUNT 261 TH/MM3 (150-450); RED BLOOD COUNT 4.02 MIL/MM3 (4.00-5.30); RED CELL DISTRIBUTION WIDTH 15.2 % (11.6-17.2); WHITE BLOOD COUNT 5.5 TH/MM3 (4.0-11.0)
[2016-10-16 16:18] LABS: REVIEW FLAG FINAL
[2016-10-16 16:54] LABS: BICARBONATE 24.9 MEQ/L (21.0-32.0); POTASSIUM 3.9 MEQ/L (3.5-5.1)
[2016-10-16 17:02] VITALS: BP 118/80; PULSE 61; RESP 18; TEMP 97.8; O2SAT 100
[2016-10-16 20:00] VITALS: BP_SYST 110; PULSE 65; RESP 14; TEMP 97.5; O2SAT 99
[2016-10-16] MEDS: MELATONIN 5 MG TAB PO PRN (22:33)
[2016-10-17] VITALS (8 sets, daily range): BP systolic 99–133; BP diastolic 58–87; PULSE 50–81; RESP 16–22; TEMP 97–98.7; O2SAT 96–100
[2016-10-17] MEDS: oxyCODONE/ACETAMINOPHEN 10 MG/325 MG TAB PO PRN ×6 (02:04→22:08)
[2016-10-17] MEDS: DOCUSATE SODIUM 100 MG CAP PO SCH ×2 (09:32→22:08)
[2016-10-17] MEDS: NICOTINE 21 MG/24 HR PATCH T-DERMAL SCH (09:32)
[2016-10-17] MEDS: SULFAMETHOXAZOLE-TRIMETHOPRIM DS 800-160 MG TAB PO SCH ×2 (09:32→22:08)
[2016-10-17] MEDS: REMOVE OLD PATCH T-DERMAL SCH (09:33)
[2016-10-17] MEDS: POLYETHYLENE GLYCOL 17 GM PKG PO SCH (09:33)
[2016-10-17] MEDS: SODIUM CHLORIDE 0.9% FLUSH 10 ML FLUSH IV FLUSH SCH ×2 (09:33→22:08)
--- NOTE | 2016-10-17 16:14 | HHI.PR ---
Subjective Remarks tells me that she feels constipated. passing flatus. denies any CP/SOB/N/V. no other concerns today Objective Vitals Vital Signs Date Time Temp Pulse Resp B/P Pulse Ox O2 Delivery O2 Flow Rate FiO2 10/17/16 15:51 97.0 65 18 102/63 99 10/17/16 15:35 16 10/17/16 11:38 97.9 69 18 116/70 99 10/17/16 08:56 98.3 59 18 111/70 100 10/17/16 04:00 98.7 56 22 106/72 99 10/17/16 00:00 97.8 50 20 120/77 100 10/16/16 20:00 97.5 65 14 110/ 99 10/16/16 17:02 97.8 61 18 118/80 100 I/O 10/16/16 10/16/16 10/16/16 10/17/16 10/17/16 10/17/16 07:00 15:00 23:00 07:00 15:00 23:00 Intake Total 480 ml Balance 480 ml Intake Oral 480 ml # Voids 2 2 2 Result Diagram: 10/16/16 1549 10/16/16 1549 Imaging Last Impressions Chest X-Ray 10/13/16529 Signed Impressions: Service Date/Time: Thursday, October 13, 2016 05:52 - CONCLUSION: Normal examination. Santiago Solis Jr., MD Abdomen X-Ray 10/13/16 0530 Signed Impressions: Service Date/Time: Thursday, October 13, 2016 05:53 - CONCLUSION: 1. Moderate amount of stool within the ascending colon. Otherwise, normal bowel gas pattern. Santiago Solis Jr., MD Elbow X-Ray 10/13/16 0000 Signed Impressions: Service Date/Time: Thursday, October 13, 2016 17:58 - CONCLUSION: No acute bony findings Kash Franco MD Objective Remarks GENERAL: in NAD SKIN: Bandage and wound VAC in place. CARDIOVASCULAR: Regular rate and rhythm without murmurs RESPIRATORY: Breath sounds equal bilaterally. No accessory muscle use. GASTROINTESTINAL: Abdomen soft, non-tender, nondistended. MUSCULOSKELETAL: No cyanosis, or edema. A/P Problem List: (1) Infected ulcer of skin ICD Code: L98.499 Status: Acute (2) IV drug user ICD Code: F19.90 Status: Chronic Assessment and Plan 31yF with 3 month old chronic would posterior aspect right forearm +MRSA Chronic posterior aspect right forearm wound -s/p POD 3 s/p I&D right forearm, VAC placement -VAC 125mmHg -Cultures positive for MRSA. Hand sx following. last wound vac changed yesterday. specification consultant Recommends changing wound vac M,W,F. -Per Dr. Quinn abscess was very superficial and there was no extension into deep tissue. No cellulitis. -off vancomycin and Zosyn. Patient on Bactrim since it is sensitive to Bactrim. -Patient is exparte and per case management does not qualify for any SNF placement at the moment. -Per hand surgeon no further indication for hand surgery, wound care following for VAC changes and possible skin graft and other wound care IV drug use -counseled -caution with narcotics -Percocet PO for pain. Insomnia -Avoid any addicting medication due to history of drug abuse. on melatonin. Severe constipation -KUB shows stools but normal gas pattern. No signs of obstruction. -Secondary to opioids abuse and dehydration. -Encourage fluid intake. added meds for bowel regimen DVT prophylaxis: Low risk, SCDs. Discharge Planning At the moment per case management she does not qualify for any SNF placement. She will need continued hospitalization secondary to the wound VAC. Problem Qualifiers (1) Infected ulcer of skin: Qualified Code: L98.492 - Infected ulcer of skin, with fat layer exposed Talia Chavira MD October 17, 2016 16:13
[2016-10-18] MEDS: oxyCODONE/ACETAMINOPHEN 10 MG/325 MG TAB PO PRN ×5 (03:09→21:04)
[2016-10-18 03:29] VITALS: BP 94/55; PULSE 54; RESP 16; TEMP 96.9; O2SAT 100
[2016-10-18 08:00] VITALS: BP 98/67; PULSE 59; RESP 20; TEMP 97.9; O2SAT 99
[2016-10-18] MEDS: REMOVE OLD PATCH T-DERMAL SCH (08:23)
[2016-10-18] MEDS: NICOTINE 21 MG/24 HR PATCH T-DERMAL SCH (08:24)
[2016-10-18] MEDS: SULFAMETHOXAZOLE-TRIMETHOPRIM DS 800-160 MG TAB PO SCH ×2 (08:26→21:03)
[2016-10-18] MEDS: DOCUSATE SODIUM 100 MG CAP PO SCH ×2 (08:26→21:04)
[2016-10-18] MEDS: SODIUM CHLORIDE 0.9% FLUSH 10 ML FLUSH IV FLUSH SCH ×2 (08:27→21:05)
[2016-10-18] MEDS: POLYETHYLENE GLYCOL 17 GM PKG PO SCH (08:28)
[2016-10-18 12:06] VITALS: BP 115/70; PULSE 69; RESP 20; TEMP 98.8; O2SAT 100
[2016-10-18] MEDS: MORPHINE SULFATE 4 MG/ML INJ IV PUSH PRN (12:30)
--- NOTE | 2016-10-18 15:02 | HHI.PR ---
Subjective Remarks Pt states that her arm is tender. denies any chest pain, SOB, n/v wound vac was changed today Objective Vitals Vital Signs Date Time Temp Pulse Resp B/P Pulse Ox O2 Delivery O2 Flow Rate FiO2 10/18/16 12:06 98.8 69 20 115/70 100 10/18/16 08:00 97.9 59 20 98/67 99 10/18/16 03:29 96.9 54 16 94/55 100 10/17/16 23:31 97.0 56 16 99/58 99 10/17/16 20:00 97.7 81 22 133/87 96 10/17/16 19:35 97.9 64 18 113/59 99 10/17/16 15:51 97.0 65 18 102/63 99 10/17/16 15:35 16 I/O 10/17/16 10/17/16 10/17/16 10/18/16 10/18/16 10/18/16 07:00 15:00 23:00 07:00 15:00 23:00 Intake Total 600 ml Balance 600 ml Intake Oral 600 ml # Voids 2 2 3 2 # Bowel Movements 0 Result Diagram: 10/16/16 1549 10/16/16 1549 Imaging Last Impressions Chest X-Ray 10/13/1630 Signed Impressions: Service Date/Time: Thursday, October 13, 2016 05:52 - CONCLUSION: Normal examination. Santiago Solis Jr., MD Abdomen X-Ray 10/13/16 0530 Signed Impressions: Service Date/Time: Thursday, October 13, 2016 05:53 - CONCLUSION: 1. Moderate amount of stool within the ascending colon. Otherwise, normal bowel gas pattern. Santiago Solis Jr., MD Elbow X-Ray 10/13/16 0000 Signed Impressions: Service Date/Time: Thursday, October 13, 2016 17:58 - CONCLUSION: No acute bony findings Kash Franco MD Objective Remarks GENERAL: in NAD SKIN: Bandage and wound VAC in place. CARDIOVASCULAR: Regular rate and rhythm without murmurs RESPIRATORY: Breath sounds equal bilaterally. No accessory muscle use. GASTROINTESTINAL: Abdomen soft, non-tender, nondistended. MUSCULOSKELETAL: No cyanosis, or edema. A/P Problem List: (1) Infected ulcer of skin ICD Code: L98.499 Status: Acute (2) IV drug user ICD Code: F19.90 Status: Chronic Assessment and Plan 31yF with 3 month old chronic would posterior aspect right forearm +MRSA Chronic posterior aspect right forearm wound -s/p POD 4 s/p I&D right forearm, VAC placement -VAC 125mmHg -Cultures positive for MRSA. Hand sx following. last wound vac changed yesterday. documentation lead Recommends changing wound vac M,W,F. -Per Dr. Quinn abscess was very superficial and there was no extension into deep tissue. No cellulitis. -off vancomycin and Zosyn. Patient on Bactrim since it is sensitive to Bactrim. -Patient is exparte and per case management does not qualify for any SNF placement at the moment. -Per hand surgeon no further indication for hand surgery, wound care following for VAC changes and possible skin graft and other wound care IV drug use -counseled -caution with narcotics -Percocet PO for pain. Insomnia -Avoid any addicting medication due to history of drug abuse. on melatonin. Severe constipation -KUB shows stools but normal gas pattern. No signs of obstruction. -Secondary to opioids abuse and dehydration. -Encourage fluid intake. meds for bowel regimen available DVT prophylaxis: Low risk, SCDs. Discharge Planning At the moment per case management she does not qualify for any SNF placement. She will need continued hospitalization secondary to the wound VAC as [facility] Problem Qualifiers (1) Infected ulcer of skin: Qualified Code: L98.492 - Infected ulcer of skin, with fat layer exposed Talia Chavira MD October 18, 2016 15:02
[2016-10-18 16:06] VITALS: BP 98/51; PULSE 69; RESP 20; TEMP 98.7; O2SAT 100
[2016-10-18 20:00] VITALS: BP 100/51; PULSE 65; RESP 18; TEMP 97.5; O2SAT 100
[2016-10-19 00:10] VITALS: BP 90/49; PULSE 69; RESP 18; TEMP 97.1; O2SAT 98
[2016-10-19] MEDS: oxyCODONE/ACETAMINOPHEN 10 MG/325 MG TAB PO PRN ×4 (02:45→14:24)
[2016-10-19 04:00] VITALS: BP 93/55; PULSE 67; RESP 18; TEMP 96.5; O2SAT 98
[2016-10-19] MEDS: SULFAMETHOXAZOLE-TRIMETHOPRIM DS 800-160 MG TAB PO SCH (08:10)
[2016-10-19] MEDS: DOCUSATE SODIUM 100 MG CAP PO SCH (08:10)
[2016-10-19] MEDS: NICOTINE 21 MG/24 HR PATCH T-DERMAL SCH (08:10)
[2016-10-19] MEDS: POLYETHYLENE GLYCOL 17 GM PKG PO SCH (08:11)
[2016-10-19] MEDS: SODIUM CHLORIDE 0.9% FLUSH 10 ML FLUSH IV FLUSH SCH (08:11)
[2016-10-19] MEDS: REMOVE OLD PATCH T-DERMAL SCH (08:11)
[2016-10-19 08:46] VITALS: BP 84/47; PULSE 65; RESP 16; TEMP 97; O2SAT 99
[2016-10-19 12:04] VITALS: BP 83/77; PULSE 72; RESP 16; TEMP 97.6; O2SAT 98
[2016-10-19] MEDS ORDERED: BACT800T5 PO (14:23)
--- NOTE | 2016-10-19 14:27 | HHI.DS ---
Discharge Summary Admission Date October 13, 2016 at 05:33 Discharge Date: October 19, 2016 Admitting Diagnosis Skin infection, Exparte, h/o iv drug use (1) Infected ulcer of skin ICD Code: L98.499 Diagnosis: Principal (2) IV drug user ICD Code: F19.90 Diagnosis: Principal Procedures I&D right forearm, VAC placement Brief History - From Admission The patient is a 31 year old female who presents to the [facility] emergency department with a history of IV drug use and hepatitis C, brought to [facility] for medical clearance however was found to have a chronic wound on the right elbow about 9 x 6 cm with necrotic tissue in the center and yellow discharge. Patient denies having fever. He said that this has been going on for the last 2-5 months. She reports that she has been using intravenous narcotics for the last 3 years and that she would have intermittent skin abscesses from IV drug use. She was admitted owing to see for infected wound and was told to have MRSA at some point. CBC/BMP: 10/16/16 1549 10/16/16 1549 Significant Findings Laboratory Tests Test 10/16/16 15:49 Hemoglobin 9.9 GM/DL (11.6-15.3) Hematocrit 31.2 % (35.0-46.0) Mean Corpuscular Volume 77.7 FL (80.0-100.0) Mean Corpuscular Hemoglobin 24.8 PG (27.0-34.0) Mean Corpuscular Hemoglobin 31.9 % Concent (32.0-36.0) Estimat Glomerular Filtration 80 ML/MIN (>89) Rate Random Glucose 159 MG/DL (74-106) Calcium Level 8.4 MG/DL (8.5-10.1) PE at Discharge GENERAL: in NAD SKIN: Bandage and wound VAC in place. CARDIOVASCULAR: Regular rate and rhythm without murmurs RESPIRATORY: Breath sounds equal bilaterally. No accessory muscle use. GASTROINTESTINAL: Abdomen soft, non-tender, nondistended. MUSCULOSKELETAL: No cyanosis, or edema. Pt update on day of discharge pt doing well. no complaints today. hoping to be discharged today Hospital Course Chronic posterior aspect right forearm wound -s/p POD 5 s/p I&D right forearm, VAC placement. wound vac removed today. recs per veterinary livestock inspector are to cleanse wound and apply single layer xeroform (or vaseline gauze) and dry cover every other day and prn for saturation or dislodgement -Cultures positive for MRSA. finish course of bactrim. script in chart f/u w hand sx in 1 week -Patient is exparte and per case management will need to f/u w Leandro Salazar upon discharge IV drug user. Pt has been counseled. May take tylenol prn pain Pt Condition on Discharge: Stable Discharge Disposition: Discharge Home Discharge Time: > 30 minutes Discharge Instructions DIET: Follow Instructions for: As Tolerated, No Restrictions Activities you can perform: See Additionl Instruction Other Activity Instructions: do not wet wound. f/u w hand sx in 1 week wound care: cleanse wound and apply single layer xeroform and dry cover every other day and prn for saturation or dislodgement Follow up Referrals: Hand Surgery - 1 Week New Medications: Sulfamethoxazole-Trimethoprim (Bactrim DS) 800-160 Mg Tab 1 TAB PO Q12HR Days 10 TAB Talia Chavira MD October 19, 2016 14:27
== END 2016-10-19 16:03 | disposition home or self-care (01) | DRG 581 ==
LOC: NEPE 01:09 → NEDA 05:33 → NEPGCP 08:26 → N05A 10-14 15:20
PROVIDERS: ADMIT Hospitalist; ATTEND Hospitalist
PROC: 2W1CX6Z Compression of Right Lower Arm using Pressure Dressing (ICD-10-PCS; 2016-10-14)
PROC: 0KB90ZZ Excision of Right Lower Arm and Wrist Muscle, Open Approach (ICD-10-PCS; principal; 2016-10-14 20:27)
DX: S51.801A Unspecified open wound of right forearm, initial encounter (principal); B95.62 Methicillin resistant Staphylococcus aureus infection as the cause of diseases classified elsewhere; X58.XXXA Exposure to other specified factors, initial encounter; F19.90 Other psychoactive substance use, unspecified, uncomplicated; B19.20 Unspecified viral hepatitis C without hepatic coma; F17.210 Nicotine dependence, cigarettes, uncomplicated; G47.00 Insomnia, unspecified; K59.09 Other constipation
CPT/HCPCS: 36600; 71010; 73080; 74000; 76937; 80048; 80053; 80202; 82565; 83605; 84703; 85025; 85027; 86140; 86403; 87015; 87040; 87070; 87102; 87116; 87147; 87186; 87205; 87206; 96374; 96375; J1580; J2270; J2543; J3010; J3370; J7030; J7040; J7050